=== PATIENT | male | born 1960 | race American Indian/Alaskan Native ===

== ENCOUNTER 2017-11-28 07:18 | Outpatient (CLI) | payer BC ==
--- NOTE | 2017-11-28 08:24 | Ultrasound Report ---
ULTRASOUND RENAL BILATERAL HISTORY: Hematuria. TECHNIQUE: transabdominal ultrasound with color Doppler interrogation. FINDINGS: Scans of the kidneys show normal renal contours. There is normal central calyceal clustering and good preservation of the cortical thickness. There is no evidence of mass or hydronephrosis. The views of the bladder and the region of the ureters appear normal. IMPRESSION: Unremarkable renal ultrasound.
== END 2017-11-28 07:19 | disposition home or self-care (01) ==
LOC: EDBD 07:18 → US 07:18 → EDSEX 07:18 → US 07:19
PROVIDERS: ATTEND Urology
DX: R31.29 Other microscopic hematuria (principal)
CPT/HCPCS: 76770

== ENCOUNTER 2018-04-12 09:44 | Emergency (ER) | payer BC ==
[2018-04-12 09:54] VITALS: BP 141/83
--- NOTE | 2018-04-12 10:34 | XRay Report ---
FINAL REPORT EXAM: XR ELBOW 3+V RT HISTORY: pain and swelling after fall TECHNIQUE: Three views right elbow. PRIORS: None currently available. FINDINGS: There is no acute fracture. There is no evidence for healing fracture. There is no acute dislocation. Moderate nonspecific arthrosis Large calcification posterior to the olecranon may represent calcific tendinopathy, dystrophic calcification, or fractured osteophyte. No fractures of the bones. No significant joint effusion. Posterior soft tissue swelling. No subcutaneous gas. There is no cortical destruction to suggest osteomyelitis. There are no suspicious osseous lesions. There are no radiopaque foreign objects. IMPRESSION: Large calcification posterior to the olecranon may represent calcific tendinopathy, dystrophic calcification, or fractured osteophyte. Soft tissue swelling.
[2018-04-12] MEDS ORDERED: MOTRIN PO ONE (10:47)
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
== END 2018-04-12 11:12 | disposition home or self-care (01) ==
LOC: ED 09:44
DX: S50.01XA Contusion of right elbow, initial encounter (principal); M25.721 Osteophyte, right elbow; E11.9 Type 2 diabetes mellitus without complications; Z90.89 Acquired absence of other organs; V19.9XXA Pedal cyclist (driver) (passenger) injured in unspecified traffic accident, initial encounter; Y93.89 Activity, other specified; Y99.8 Other external cause status; Y92.482 Bike path as the place of occurrence of the external cause

== ENCOUNTER 2022-04-01 10:24 | Emergency (ER) | payer BC ==
[2022-04-01] MEDS ORDERED: ASPIRIN 325 MG TAB PO ONE (11:22)
[2022-04-01 11:53] LABS: Basophils % (Auto) 0.5 % (0.0-1.8); Eosinophils # (Auto) 0.1 K/mm3 (0.0-0.4); Eosinophils % (Auto) 1.1 % (0.0-4.3); Hematocrit 41.9 % (35.5-45.6); Lymphocytes # (Auto) 1.4 K/mm3 (1.2-5.4); Lymphocytes % (Auto) 24.8 % (13.4-35.0); Mean Corpuscular HGB Conc 34 % (32-34); Mean Corpuscular Volume 89 fl (84-94); Monocytes # (Auto) 0.4 K/mm3 (0.0-0.8); Monocytes % (Auto) 7.2 % (0.0-7.3); Platelet Count 253 K/mm3 (140-440); Red Blood Count 4.73 M/mm3 (3.65-5.03); Red Cell Distribution Width 15.5 % (13.2-15.2)
--- NOTE | 2022-04-01 12:02 | XRay Report ---
CHEST 2 VIEWS INDICATION / CLINICAL INFORMATION: chest pain. COMPARISON: None available. FINDINGS: SUPPORT DEVICES: None. HEART / MEDIASTINUM: No significant abnormality. LUNGS / PLEURA: No significant pulmonary or pleural abnormality. No pneumothorax. ADDITIONAL FINDINGS: No significant additional findings. IMPRESSION: 1. No acute findings. Signer Name: Jamil Erickson MD Signed: 04/01/2022 11:57 AM Workstation Name: [employer]
[2022-04-01 12:14] LABS: Alanine Aminotransferase 42 units/L (7-56); Albumin 4.4 g/dL (3.9-5); BUN/Creatinine Ratio 12; Blood Urea Nitrogen 14 mg/dL (9-20); Calcium 9.6 mg/dL (8.4-10.2); Hemolysis Index 12
--- NOTE | 2022-04-01 12:57 | Emergency Department Report ---
ED Chest Pain HPI - General Chief Complaint: Chest Pain Stated Complaint: CHEST PAIN Time Seen by Provider: 04/01/22 12:20 Source: patient Mode of arrival: Ambulatory Limitations: No Limitations - History of Present Illness Initial Comments: 62-year-old -[place] male history hypertension, complaining of left- sided chest discomfort described as a fullness. Patient denies having any chest pressure or shortness of breath. Denies having any fever chills of cough. Chest fullness lasted approximately 1 hour. MD Complaint: chest pain -: Gradual, hour(s) Onset: during exertion Pain Location: left chest Pain Radiation: none Severity scale (0 -10): 4 Quality: other (Fullness) Consistency: now resolved Worsens With: nothing Context: recent illness Other Symptoms: cough - Related Data Previous Rx's Medication Instructions Recorded Last Taken Type Naproxen [Naprosyn] 500 mg PO BID #20 tablet 04/12/18 Unknown Rx Tramadol HCl [Ultram] 50 mg PO Q6HR PRN #6 tablet 04/12/18 Unknown Rx Allergies Allergy/AdvReac Type Severity Reaction Status Date / Time No Known Allergies Allergy Unverified 11/28/17 07:18 Heart Score - HEART Score History: Slightly suspicious EKG: Non-specific Age: 45-65 Risk factors: No known risk factors Troponin: < normal limit HEART Score: 2 - EKG Read Time Time EKG Completed: 10:50 EKG Read Time: 10:55 - Critical Actions Critical Actions: 0-3 pts:0.9-1.7%risk of adverse cardiac event.Candidate for discharge ED Review of Systems ROS: Stated complaint: CHEST PAIN Other details as noted in HPI Constitutional: denies: chills, fever Eyes: denies: eye pain, eye discharge, vision change ENT: denies: ear pain, throat pain Respiratory: denies: cough, shortness of breath, wheezing Cardiovascular: chest pain. denies: palpitations, dyspnea on exertion, orthopnea Endocrine: no symptoms reported Gastrointestinal: denies: abdominal pain, nausea, diarrhea Genitourinary: denies: urgency, dysuria Musculoskeletal: denies: back pain, joint swelling, arthralgia Skin: denies: rash, lesions Neurological: denies: headache, weakness, paresthesias Psychiatric: denies: anxiety, depression Hematological/Lymphatic: denies: easy bleeding, easy bruising ED Past Medical Hx - Past Medical History Previous Medical History?: Yes Hx Hypertension: Yes Hx Diabetes: Yes - Surgical History Past Surgical History?: Yes Additional Surgical History: tonsillectomy 1998 - Social History Smoking Status: Never Smoker Substance Use Type: None - Medications Home Medications: Home Medications Medication Instructions Recorded Confirmed Last Taken Type Naproxen [Naprosyn] 500 mg PO BID #20 tablet 04/12/18 Unknown Rx Tramadol HCl [Ultram] 50 mg PO Q6HR PRN #6 tablet 04/12/18 Unknown Rx ED Physical Exam - General Limitations: No Limitations ED Course Vital Signs 04/01/22 04/01/22 04/01/22 10:41 12:19 13:53 Temperature 97.2 F L Pulse Rate 83 74 68 Respiratory 20 18 18 Rate Blood Pressure 146/82 145/66 159/66 [Right] O2 Sat by Pulse 100 99 99 Oximetry ED Medical Decision Making - Lab Data Result diagrams: 04/01/22 11:38 04/01/22 11:38 - EKG Data EKG shows normal: sinus rhythm, axis, intervals Rate: normal - EKG Data When compared to previous EKG there are: no significant change Critical care attestation.: If time is entered above; I have spent that time in minutes in the direct care of this critically ill patient, excluding procedure time. ED Disposition Clinical Impression: Atypical chest pain Disposition: HOME / SELF CARE / HOMELESS Is pt being admited?: No Does the pt Need Aspirin: No Condition: Stable Instructions: Nonspecific Chest Pain, Adult Referrals: HAI BOWER MD [Primary Care Provider] - 3-5 Days
[2022-04-01 16:39] VITALS: BP 145/63
--- NOTE | 2022-04-02 10:18 | Electrocardiograph Report ---
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
== END 2022-04-01 16:55 | disposition home or self-care (01) ==
LOC: ED 10:24
DX: R07.9 Chest pain, unspecified (principal); I10 Essential (primary) hypertension; E11.9 Type 2 diabetes mellitus without complications
CPT/HCPCS: 36415; 71046; 80053; 84484; 85025; 93005; 99284